=== PATIENT | male | born 1935 | race Caucasian/White ===

== ENCOUNTER 2020-12-06 11:56 | Day surgery (SDC) | payer MEDICARE ==
[2020-12-05 12:04] LABS: BASOPHILS % (AUTO) 0.4 % (0-1); EOSINOPHILS # (AUTO) 0.3 X10'3 (0-0.9); EOSINOPHILS % (AUTO) 4.1 % (0-6); HEMATOCRIT 35.9 % (42.0-52.0); HEMOGLOBIN 11.8 g/dl (14.0-17.9); LYMPHOCYTES # (AUTO) 1.8 X10'3 (1.1-4.8); LYMPHOCYTES % (AUTO) 26.2 % (21-51); MEAN CORPUSCULAR HEMOGLOBIN 27.9 PG (27.0-31.0); MEAN CORPUSCULAR HGB CONC 32.7 g/dL (33.0-36.5); MEAN CORPUSCULAR VOLUME 85.2 FL (78-98); MONOCYTES # (AUTO) 0.7 X10'3 (0-0.9); MONOCYTES % (AUTO) 10.6 % (2-12); NEUTROPHILS % (AUTO) 58.7 % (42-75); PLATELET COUNT 199 X10'3 (140-440); RED BLOOD COUNT 4.21 X10'6 (4.70-6.10); RED CELL DISTRIBUTION WIDTH 18.2 % (11.5-14.5); WHITE BLOOD COUNT 6.9 X10'3 (4.5-11.0)
[2020-12-05 12:14] LABS: PARTIAL THROMBOPLASTIN TIME 31 SECONDS (22-32)
[2020-12-05 12:25] LABS: ALBUMIN 3.6 G/DL (3.4-5.0); ANION GAP 10 (8-16); BLOOD UREA NITROGEN 25 MG/DL (7-18); BUN/CREATININE RATIO 12.8 (5.4-32.0); CALCIUM 8.7 MG/DL (8.5-10.1); CHLORIDE 110 MMOL/L (99-107); CREATININE 1.95 MG/DL (0.60-1.10); GLUCOSE 100 MG/DL (70-104); POTASSIUM 5.2 MMOL/L (3.5-5.1); SODIUM 141 MMOL/L (135-145); TOTAL CARBON DIOXIDE 20.7 MMOL/L (24-32); eGFR 33 ML/MIN
[~2020-12-06] VITALS: Ht 175.3 cm; Wt 103.1 kg
[2020-12-06] VITALS (12 sets, daily range): BP systolic 99–124; BP diastolic 62–80
[2020-12-06] MEDS ORDERED: ATOR40TA72 PO (12:17)
[2020-12-06] MEDS ORDERED: PANT-47 PO (12:26)
[2020-12-06] MEDS ORDERED: VITAMIN B12 PO (12:26)
[2020-12-06] MEDS ORDERED: APIX5TAB3 PO (12:26)
[2020-12-06] MEDS ORDERED: METO100T14 PO (12:26)
[2020-12-06] MEDS ORDERED: GABA300C PO (12:26)
[2020-12-06] MEDS ORDERED: DRON400T7 PO (12:26)
[2020-12-06] MEDS ORDERED: MEMA10TA PO (12:26)
[2020-12-06] MEDS ORDERED: ASPI-955 PO (12:26)
[2020-12-06] MEDS ORDERED: CHOL20003 PO (12:26)
[2020-12-06] MEDS ORDERED: fentaNYL/PF 50MCG/1 ML 2ML syringe IV ONE (12:55)
[2020-12-06] MEDS ORDERED: MIDAZolam 1mg/ml 10ml vial IV ONE (12:55)
== END 2020-12-06 15:00 | disposition home or self-care (01) ==
LOC: SSTAY O 11:56
PROVIDERS: ATTEND Internal Medicine Interventional Cardiology
DX: I48.91 Unspecified atrial fibrillation (principal); I25.118 Atherosclerotic heart disease of native coronary artery with other forms of angina pectoris; I25.2 Old myocardial infarction; M19.90 Unspecified osteoarthritis, unspecified site; K21.9 Gastro-esophageal reflux disease without esophagitis; G62.9 Polyneuropathy, unspecified; G47.33 Obstructive sleep apnea (adult) (pediatric); I11.0 Hypertensive heart disease with heart failure; I50.9 Heart failure, unspecified; Z95.5 Presence of coronary angioplasty implant and graft; Z95.1 Presence of aortocoronary bypass graft; Z95.0 Presence of cardiac pacemaker; Z88.5 Allergy status to narcotic agent; Z79.899 Other long term (current) drug therapy; Z79.01 Long term (current) use of anticoagulants
CPT/HCPCS: 36415; 80048; 85025; 85610; 85730; 92960; 93005; 94760; 94799; J2250; J3010

== ENCOUNTER 2021-09-26 11:33 | Day surgery (SDC) | payer MEDICARE ==
[2021-09-26] VITALS (11 sets, daily range): BP systolic 107–138; BP diastolic 61–93
[~2021-09-26] VITALS: Ht 175.3 cm; Wt 103.4 kg
[~2021-09-26 11:33] MED LIST: APIX5TAB3 PO; ASPI-955 PO; ATOR40TA72 PO; CHOL20003 PO; DRON400T7 PO; GABA300C PO; MEMA10TA PO; METO100T14 PO; PANT-47 PO; VITAMIN B12 PO
[2021-09-26] MEDS ORDERED: normal saline 1000ml 1,000 ML IV SCH (11:55)
[2021-09-26] MEDS ORDERED: MIDAZolam 1mg/ml 10ml vial IV ONE (11:55)
[2021-09-26] MEDS ORDERED: fentaNYL/PF 50MCG/1 ML 2ML syringe IV ONE (11:55)
[2021-09-26] MEDS ORDERED: AMIO200T61 (12:03)
[2021-09-26] MEDS ORDERED: FERR325T28 PO (12:05)
[2021-09-26] MEDS ORDERED: NITR0.4T51 SL (12:05)
[2021-09-26] MEDS ORDERED: METO-539 PO (12:05)
[2021-09-26] MEDS ORDERED: APIX2.5T PO (12:05)
[2021-09-26 12:19] LABS: BASOPHILS % (AUTO) 0.7 % (0-1); EOSINOPHILS # (AUTO) 0.3 X10'3 (0-0.9); HEMATOCRIT 35.7 % (42.0-52.0); HEMOGLOBIN 11.4 g/dl (14.0-17.9); LYMPHOCYTES # (AUTO) 1.6 X10'3 (1.1-4.8); LYMPHOCYTES % (AUTO) 25.8 % (21-51); MEAN CORPUSCULAR HEMOGLOBIN 26.7 PG (27.0-31.0); MEAN CORPUSCULAR HGB CONC 31.8 g/dL (33.0-36.5); MEAN CORPUSCULAR VOLUME 83.9 FL (78-98); MEAN PLATELET VOLUME 9.1 FL (7.4-10.4); MONOCYTES # (AUTO) 0.7 X10'3 (0-0.9); MONOCYTES % (AUTO) 11.7 % (2-12); NEUTROPHILS # (AUTO) 3.6 X10'3 (1.8-7.7); NEUTROPHILS % (AUTO) 56.8 % (42-75); PLATELET COUNT 181 X10'3 (140-440); RED BLOOD COUNT 4.26 X10'6 (4.70-6.10); RED CELL DISTRIBUTION WIDTH 21.6 % (11.5-14.5); WHITE BLOOD COUNT 6.3 X10'3 (4.5-11.0)
[2021-09-26 12:28] LABS: ALBUMIN 3.3 G/DL (3.4-5.0); ANION GAP 9 (8-16); BLOOD UREA NITROGEN 21 MG/DL (7-18); BUN/CREATININE RATIO 12.5 (5.4-32.0); CALCIUM 8.2 MG/DL (8.5-10.1); CHLORIDE 110 MMOL/L (99-107); CREATININE 1.68 MG/DL (0.60-1.10); GLUCOSE 90 MG/DL (70-104); POTASSIUM 4.6 MMOL/L (3.5-5.1); SODIUM 142 MMOL/L (135-145); TOTAL CARBON DIOXIDE 23.2 MMOL/L (24-32); eGFR 39 ML/MIN
[2021-09-26 12:55] LABS: ANISOCYTOSIS 3+; PLATELET ESTIMATE NORMAL; POIKILOCYTOSIS 1+; TARGET CELLS FEW
[2021-09-26 12:56] LABS: ACANTHOCYTES FEW; ELLIPTOCYTES 1+
== END 2021-09-26 16:00 | disposition home or self-care (01) ==
LOC: SSTAY O 11:33
PROVIDERS: ATTEND Internal Medicine Interventional Cardiology
DX: I48.91 Unspecified atrial fibrillation (principal); G47.33 Obstructive sleep apnea (adult) (pediatric); I25.2 Old myocardial infarction; I25.10 Atherosclerotic heart disease of native coronary artery without angina pectoris; I11.0 Hypertensive heart disease with heart failure; I50.9 Heart failure, unspecified; I27.20 Pulmonary hypertension, unspecified; I42.9 Cardiomyopathy, unspecified; I34.0 Nonrheumatic mitral (valve) insufficiency; M19.90 Unspecified osteoarthritis, unspecified site; G62.9 Polyneuropathy, unspecified; K21.9 Gastro-esophageal reflux disease without esophagitis; Z95.0 Presence of cardiac pacemaker; Z79.899 Other long term (current) drug therapy; Z79.82 Long term (current) use of aspirin; Z95.5 Presence of coronary angioplasty implant and graft; Z88.5 Allergy status to narcotic agent
CPT/HCPCS: 80048; 85025; 92960; 93005; 94799; J2250; J3010; J7030; 85008